=== PATIENT | female | born 1965 | race Hispanic/Latino ===

== ENCOUNTER 2017-04-15 00:42 | Inpatient (IN) | payer SELFPAY ==
[2017-04-15 01:59] LABS: #Lymphocytes 1.1 thou/uL (1.20-3.40); #Monocytes 0.9 thou/uL (0.11-0.59); #Neutrophils 7.2 thou/uL (1.40-6.50); %Eosinophils 0.4 % (0.0-10.0); %Lymphocytes 12.2 % (21.0-51.0); %Monocytes 9.6 % (0.0-10.0); %Neutrophils 77.8 % (42.0-75.0); Hemoglobin 11.1 g/dL (12.0-16.0); Mean Corpuscular Hemoglobin 30.3 pg (27.0-31.0); Mean Corpuscular Volume 91.8 fl (81.0-99.0); Mean Platelet Volume 6.8 fL (7.4-10.4); Platelet Count 290 thou/uL (130-400); RBC Distribution Width 12.4 % (11.5-14.5); Red Blood Cell (RBC) Count 3.65 mill/uL (4.20-5.40); White Blood Cell (WBC) Count 9.2 thou/uL (4.8-10.8)
[2017-04-15 02:03] LABS: Base Excess-Venous -8.1 mmol/L (-30.0-30.0); Bicarbonate (HCO3v) 19.5 mmol/L (1.0-85.0); CO2 Tension (PvCO2) 47.8 mmHg (41.0-51.0); Calcium, Ionized 1.09 mmol/L (1.12-1.32); Hemoglobin - Calc 10.7 g/dL (12.0-18.0); O2 Tension (PvO2) 38.8 mmHg (35.0-45.0); Potassium 3.5 mmol/L (3.4-4.7); T. Carbon Dioxide 20.9 mmol/L (1.0-85.0); pH (Venous) 7.218 (7.35-7.45); vO2 Saturation-calc 62.2 % (0.0-100.0)
[2017-04-15 02:06] LABS: INR-International Normal Ratio 1.2; PTT 26.1 SEC (22.9-36.1); Prothrombin Time 15.8 SEC (12.0-14.7)
[2017-04-15 02:21] LABS: ALT (SGPT) 68 U/L (8-55); AST (SGOT) 139 U/L (5-34); Albumin 3.2 g/dL (3.5-5.0); Alcohol 194 mg/dL (Less than 10); Alkaline Phosphatase 70 U/L (40-150); Anion Gap 17 mmol/L (10-20); BUN (Urea Nitrogen) 12 mg/dL (9.8-20.1); Bilirubin, Total 0.3 mg/dL (0.2-1.2); Calc. Creatinine Clearance 0 mL/min (70-130); Calcium 7.6 mg/dL (7.8-10.44); Carbon Dioxide 15 mmol/L (22-29); Chloride 116 mmol/L (98-107); Estimated GFR-MDRD Greater than 90; Globulin 2.2 g/dL (2.4-3.5); Glucose 138 mg/dL (70-105); Potassium 3.6 mmol/L (3.5-5.1); Protein, Total 5.4 g/dL (6.0-8.3); Sodium 144 mmol/L (136-145)
[2017-04-15] MEDS ORDERED: Dextrose 5% in Water 1,000 ML IV PRN (03:02)
[2017-04-15] MEDS ORDERED: Dextrose 50% Abboject 50 ML SYRINGE SLOW IVP PRN (03:02)
[2017-04-15] MEDS ORDERED: hydrALAZINE 20 MG/ML VIAL SLOW IVP PRN (03:02)
[2017-04-15] MEDS ORDERED: Promethazine HCl 25 MG/ML VIAL IM PRN (03:02)
[2017-04-15] MEDS ORDERED: Ondansetron ODT 4 MG TAB PO PRN (03:02)
[2017-04-15] MEDS ORDERED: Morphine 4 MG/ML Carpuject SLOW IVP PRN (03:02)
[2017-04-15] MEDS ORDERED: Thiamine HCl 200 MG/2 ML VIAL SLOW IVP SCH (03:02)
[2017-04-15] MEDS ORDERED: Acetaminophen 1,000 MG in Premix Bag 1 BAG IVPB PRN (03:02)
[2017-04-15] MEDS ORDERED: HumaLOG 300 UNITS/3 ML VIAL SC PRN (03:02)
[2017-04-15 03:07] VITALS: BMI 40.0
[2017-04-15] MEDS: Sodium Chloride 0.9% 1,000 ML IV SCH ×3 (03:38→20:29)
[2017-04-15] MEDS: Morphine 4 MG/ML Carpuject IVP PRN ×2 (03:42→08:26)
[2017-04-15] MEDS: Oxazepam 10 MG CAP PO SCH ×4 (05:05→20:29)
[2017-04-15 05:10] LABS: Bilirubin Negative (Negative); Blood, Urine Large (Negative); Clarity CLEAR (Clear); Glucose, Urine (Dipstick) Negative (Negative); Leukocyte Negative (Negative); Nitrite Negative (Negative); Protein, Urine (Dipstick) Trace mg/dL (Neg-Trace); Specific Gravity, Urine 1.022 (1.002-1.036); Urobilinogen 0.2 mg/dL (0.2-1.0)
[2017-04-15 05:13] LABS: Bacteria/HPF None Seen HPF (None Seen); Hyaline Casts/LPF 4-6 HYALINE CAST LPF (0-3 Hyaline); Pathc Cast-AUWi Flag 0.67 (0-2.49); Squamous Epithelial None Seen HPF (0-3); WBC/HPF 0-3 HPF (0-3)
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
[2017-04-15 05:41] LABS: #Lymphocytes 0.9 thou/uL (1.20-3.40); #Monocytes 0.4 thou/uL (0.11-0.59); #Neutrophils 6.9 thou/uL (1.40-6.50); %Basophils 0.2 % (0.0-1.0); %Eosinophils 0.2 % (0.0-10.0); %Lymphocytes 10.5 % (21.0-51.0); %Monocytes 5.2 % (0.0-10.0); %Neutrophils 83.9 % (42.0-75.0); Mean Corpuscular HGB CONC 33.3 g/dL (32.0-36.0); Mean Corpuscular Hemoglobin 30.3 pg (27.0-31.0); Platelet Count 309 thou/uL (130-400); RBC Distribution Width 12.6 % (11.5-14.5); Red Blood Cell (RBC) Count 3.63 mill/uL (4.20-5.40); White Blood Cell (WBC) Count 8.2 thou/uL (4.8-10.8)
[2017-04-15 05:46] LABS: Anion Gap 15 mmol/L (10-20); BUN (Urea Nitrogen) 11 mg/dL (9.8-20.1); Calc. Creatinine Clearance 147 mL/min (70-130); Calcium 7.7 mg/dL (7.8-10.44); Carbon Dioxide 18 mmol/L (22-29); Chloride 116 mmol/L (98-107); Estimated GFR-MDRD Greater than 90; Glucose 140 mg/dL (70-105); Potassium 3.6 mmol/L (3.5-5.1); Sodium 145 mmol/L (136-145)
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
[2017-04-15] MEDS: Famotidine/PF 20 mg/2ml Vial SLOW IVP SCH ×2 (08:28→20:29)
[2017-04-15] MEDS: Folic Acid 1 MG TAB PO SCH (08:29)
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
[2017-04-15] MEDS ORDERED: diphenhydrAMINE 50 MG/ML VIAL IM PRN (12:02)
[2017-04-15] MEDS ORDERED: diphenhydrAMINE 50 MG/ML VIAL IVP PRN (12:02)
[2017-04-15] MEDS ORDERED: diphenhydrAMINE 25 MG CAP PO PRN (12:02)
[2017-04-15] MEDS ORDERED: Naloxone HCl 0.4 mg/ml Vial IV PRN (12:02)
[2017-04-15] MEDS ORDERED: Communication Order-Pharmacy FS SCH (12:15)
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
[2017-04-15] MEDS: Acetaminophen 500 MG TAB PO SCH ×3 (12:31→23:01)
[2017-04-15] MEDS: HYDROmorphone 10 mg/100 ml CADD IVPB PRN (13:37)
[2017-04-15] MEDS ORDERED: Ketorolac Tromethamine 30 MG/ML VIAL IVP SCH (14:00)
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
[2017-04-15] MEDS: Ketorolac Tromethamine 30 MG/ML VIAL IVP SCH ×2 (18:04→23:00)
[2017-04-15] MEDS: Ondansetron HCl/PF 4 MG/2 ML Vial IVP PRN (20:29)
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
[2017-04-16 04:28] LABS: Band 5 % (5-11); Hemoglobin 8.9 g/dL (12.0-16.0); Lymphocytes 27 % (21-51); MDiff Complete? YES; Mean Corpuscular HGB CONC 34.4 g/dL (32.0-36.0); Mean Corpuscular Hemoglobin 31.5 pg (27.0-31.0); Mean Corpuscular Volume 91.6 fl (81.0-99.0); Mean Platelet Volume 6.8 fL (7.4-10.4); Metamyelocyte 2 % (0-0); Monocytes 2 % (0-10); Neutrophil 64 % (42-75); PLT Morphology Comment Appears Adequate; Platelet Count 220 thou/uL (130-400); RBC Distribution Width 12.5 % (11.5-14.5); Red Blood Cell (RBC) Count 2.82 mill/uL (4.20-5.40); White Blood Cell (WBC) Count 5.1 thou/uL (4.8-10.8)
[2017-04-16 04:33] LABS: Anion Gap 9 mmol/L (10-20); BUN (Urea Nitrogen) 14 mg/dL (9.8-20.1); Calc. Creatinine Clearance 152 mL/min (70-130); Calcium 8.1 mg/dL (7.8-10.44); Carbon Dioxide 24 mmol/L (22-29); Chloride 110 mmol/L (98-107); Estimated GFR-MDRD Greater than 90; Glucose 91 mg/dL (70-105); Phosphorus 2.6 mg/dL (2.3-4.7); Potassium 3.8 mmol/L (3.5-5.1); Sodium 139 mmol/L (136-145)
[2017-04-16] MEDS: Acetaminophen 500 MG TAB PO SCH ×4 (05:25→23:30)
[2017-04-16] MEDS: Ketorolac Tromethamine 30 MG/ML VIAL IVP SCH ×4 (05:25→23:30)
[2017-04-16] MEDS: Oxazepam 10 MG CAP PO SCH ×3 (05:26→21:06)
[2017-04-16] MEDS ORDERED: FLU VACC QS2017-18 36 mo. & older 0.5 ML SYRINGE IM ONE (09:00)
[2017-04-16] MEDS: Famotidine/PF 20 mg/2ml Vial SLOW IVP SCH ×2 (09:43→21:06)
[2017-04-16] MEDS: Folic Acid 1 MG TAB PO SCH (09:44)
[2017-04-16] MEDS: Sodium Chloride 0.9% 1,000 ML IV SCH (12:12)
[2017-04-16] MEDS: Ondansetron HCl/PF 4 MG/2 ML Vial IVP PRN (12:15)
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
[2017-04-16 16:01] LABS: Hemoglobin 8.8 g/dL (12.0-16.0)
[2017-04-16] MEDS: HYDROmorphone 10 mg/100 ml CADD IVPB PRN (17:27)
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
[2017-04-17 04:22] LABS: #Eosinphils 0.1 thou/uL (0.0-0.7); #Lymphocytes 1.3 thou/uL (1.20-3.40); #Monocytes 0.2 thou/uL (0.11-0.59); #Neutrophils 2.7 thou/uL (1.40-6.50); %Basophils 0.6 % (0.0-1.0); %Eosinophils 3.2 % (0.0-10.0); %Lymphocytes 30.5 % (21.0-51.0); %Monocytes 5.4 % (0.0-10.0); %Neutrophils 60.3 % (42.0-75.0); Hemoglobin 8.5 g/dL (12.0-16.0); Mean Corpuscular HGB CONC 32.9 g/dL (32.0-36.0); Mean Corpuscular Volume 91.1 fl (81.0-99.0); Mean Platelet Volume 6.7 fL (7.4-10.4); Platelet Count 221 thou/uL (130-400); RBC Distribution Width 12.1 % (11.5-14.5); Red Blood Cell (RBC) Count 2.83 mill/uL (4.20-5.40); White Blood Cell (WBC) Count 4.4 thou/uL (4.8-10.8)
[2017-04-17 04:33] LABS: Anion Gap 7 mmol/L (10-20); BUN (Urea Nitrogen) 11 mg/dL (9.8-20.1); Calc. Creatinine Clearance 152 mL/min (70-130); Calcium 8.4 mg/dL (7.8-10.44); Carbon Dioxide 27 mmol/L (22-29); Chloride 106 mmol/L (98-107); Estimated GFR-MDRD Greater than 90; Glucose 89 mg/dL (70-105); Magnesium 1.9 mg/dL (1.6-2.6); Phosphorus 3.1 mg/dL (2.3-4.7); Potassium 3.9 mmol/L (3.5-5.1); Sodium 136 mmol/L (136-145)
[2017-04-17] MEDS: Oxazepam 10 MG CAP PO SCH ×4 (06:04→21:03)
[2017-04-17] MEDS: Acetaminophen 500 MG TAB PO SCH ×3 (06:04→17:39)
[2017-04-17] MEDS: Ketorolac Tromethamine 30 MG/ML VIAL IVP SCH ×4 (06:04→23:38)
[2017-04-17] MEDS: Folic Acid 1 MG TAB PO SCH (08:34)
[2017-04-17] MEDS: Famotidine/PF 20 mg/2ml Vial SLOW IVP SCH ×2 (08:34→21:05)
[2017-04-17] MEDS ORDERED: Fentanyl 100 MCG/2 ML VIAL ONE ×2 (08:35→11:20)
[2017-04-17] MEDS ORDERED: Levofloxacin 500 mg/D5W 100 ml Premix Bag ONE (08:41)
[2017-04-17] MEDS ORDERED: Clindamycin/D5W 900 mg/50 ml Premix Bag ONE (08:42)
[2017-04-17] MEDS ORDERED: Phenylephrine 10 MG/NS 250 ML 250 ML ONE (09:20)
[2017-04-17] MEDS ORDERED: Clindamycin/D5W 900 MG in Premix Bag 1 BAG IVPB SCH (12:00)
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
--- NOTE | 2017-04-17 12:21 | RAD ---
THREE VIEWS OF THE PELVIS: HISTORY: ORIF of pelvic fractures. COMPARISON: None. FINDINGS/IMPRESSION: Multiple limited intraoperative fluoroscopic views of the pelvis were submitted for interpretation. There are two screws seen involving the sacroiliac joint. There is a plate and screws spanning the p ubic symphysis. No perihardware lucency is seen. POS: [facility]
[2017-04-17] MEDS ORDERED: Succinylcholine Chloride 20 MG/ML 10 ml SYRINGE FS ONE (12:42)
[2017-04-17] MEDS ORDERED: Glycopyrrolate 0.2 MG/ML 5 ML SYRINGE ONE (12:42)
[2017-04-17] MEDS ORDERED: Dexamethasone 20 MG/5 ML VIAL ONE (12:42)
[2017-04-17] MEDS ORDERED: PHENYLEPHRINE-NS 100 MCG/ML 10 ML SYRINGE ONE (12:42)
[2017-04-17] MEDS ORDERED: Propofol 200 MG/20 ML VIAL ONE (12:42)
[2017-04-17] MEDS ORDERED: Ondansetron HCl/PF 4 MG/2 ML Vial ONE (12:42)
[2017-04-17] MEDS ORDERED: Metoclopramide HCl 10 MG/2 ML VIAL ONE (12:42)
[2017-04-17] MEDS ORDERED: Lidocaine 1% PF 5 ML VIAL ONE (12:42)
--- NOTE | 2017-04-17 12:50 | RAD ---
PELVIS 1 VIEW: HISTORY: Evaluate fractures. COMPARISON: Radiographs same day. FINDINGS: Single radiograph of the pelvis demonstrates 2 partially threaded cannulated screws. The craniad scr ew through S1 extends to right SI joint and the left traverses both SI joints. The malleable plate a nd screw fixation to the pubic symphysis is in good position. Surgical tiffanie are present over the mid abdomen. Sarkar catheter is present. IMPRESSION: Satisfactory position post fixation. POS: [facility]
[2017-04-17] MEDS: Clindamycin/D5W 900 MG in Premix Bag 1 BAG IVPB SCH ×2 (13:12→21:04)
[2017-04-17] MEDS: HYDROcodone/Acetaminophen 10/325 mg Tablet PO PRN ×3 (13:14→21:03)
[2017-04-17] MEDS: Sodium Chloride 0.9% 1,000 ML IV SCH (13:14)
--- NOTE | 2017-04-17 14:00 | CT ---
PELVIC CT WITHOUT CONTRAST: HISTORY: Status post pelvic instrumentation. COMPARISON: None. TECHNIQUE: A noncontrast pelvic CT is performed in the axial plane. Reformatted images are submitted for interp retation. FINDINGS: Visualized alimentary canal and mesentery are unremarkable. Uterus and adnexal structures are unrema rkable. The urinary bladder is decompressed with Sarkar catheterization. Ventral subcutaneous emphysema and fat stranding due to surgery is identified. There are multiple ve ntral surgical tiffanie. There is a plate with screws traversing the symphysis pubis as well as the m edial aspect of both superior pubic rami. There is a fracture involving the right inferior pubic zuleika us with associated mild displacement and distraction. There is a screw that traverses the right SI joint. There is a second longer screw that traverses bot h SI joints. Both screws are via the right iliac approach. There is a minimally displaced fracture i nvolving the right aspect of S1 and S2. Also, nondisplaced fracture of the right iliac wing along th e SI joint is noted. There are degenerative changes of the left IS joint without evidence of fractur e. Fractures of the left and right spinous process at L5 are noted. IMPRESSION: Internal fixation hardware and fractures as above. POS: [facility]
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
[2017-04-18] MEDS: Acetaminophen 500 MG TAB PO SCH ×3 (00:42→12:29)
[2017-04-18] MEDS: HYDROcodone/Acetaminophen 10/325 mg Tablet PO PRN ×4 (00:46→20:36)
[2017-04-18] MEDS: Oxazepam 10 MG CAP PO SCH ×3 (04:50→20:38)
[2017-04-18 04:51] LABS: Anion Gap 9 mmol/L (10-20); BUN (Urea Nitrogen) 10 mg/dL (9.8-20.1); Calc. Creatinine Clearance 147 mL/min (70-130); Calcium 8.1 mg/dL (7.8-10.44); Carbon Dioxide 27 mmol/L (22-29); Chloride 104 mmol/L (98-107); Estimated GFR-MDRD Greater than 90; Glucose 119 mg/dL (70-105); Magnesium 1.9 mg/dL (1.6-2.6); Phosphorus 3.1 mg/dL (2.3-4.7); Potassium 4.1 mmol/L (3.5-5.1); Sodium 136 mmol/L (136-145)
[2017-04-18 05:01] LABS: Band 11 % (5-11); Eosinophils 1 % (0-10); Hemoglobin 7.5 g/dL (12.0-16.0); Lymphocytes 11 % (21-51); MDiff Complete? YES; Mean Corpuscular HGB CONC 33.5 g/dL (32.0-36.0); Mean Corpuscular Hemoglobin 30.5 pg (27.0-31.0); Monocytes 1 % (0-10); Neutrophil 76 % (42-75); PLT Morphology Comment Appears Adequate; Platelet Count 230 thou/uL (130-400); RBC Distribution Width 12.2 % (11.5-14.5); Red Blood Cell (RBC) Count 2.46 mill/uL (4.20-5.40); White Blood Cell (WBC) Count 6.2 thou/uL (4.8-10.8)
[2017-04-18] MEDS: Ketorolac Tromethamine 30 MG/ML VIAL IVP SCH ×2 (06:14→12:37)
[2017-04-18] MEDS: Famotidine/PF 20 mg/2ml Vial SLOW IVP SCH ×2 (09:14→20:38)
[2017-04-18] MEDS: Folic Acid 1 MG TAB PO SCH (09:14)
[2017-04-18] MEDS: Enoxaparin Sodium 40 MG/0.4 ML SYRINGE SC SCH (09:15)
[2017-04-18] MEDS: Sodium Chloride 0.9% 1,000 ML IV SCH (12:29)
[2017-04-18] MEDS: Ibuprofen 600 MG TAB PO SCH ×3 (14:15→20:52)
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
[2017-04-18] MEDS ORDERED: Ibuprofen 600 MG TAB PO SCH (18:00)
[2017-04-18] MEDS: Senokot S 8.6-50 MG TAB PO SCH (20:38)
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
[2017-04-19] MEDS: Ibuprofen 600 MG TAB PO SCH ×4 (02:34→20:40)
[2017-04-19] MEDS: HYDROcodone/Acetaminophen 10/325 mg Tablet PO PRN ×3 (02:34→16:55)
[2017-04-19] MEDS: Oxazepam 10 MG CAP PO SCH ×3 (05:01→20:41)
[2017-04-19 07:38] LABS: #Eosinphils 0.2 thou/uL (0.0-0.7); #Lymphocytes 1.5 thou/uL (1.20-3.40); #Monocytes 0.4 thou/uL (0.11-0.59); #Neutrophils 2.8 thou/uL (1.40-6.50); %Basophils 0.8 % (0.0-1.0); %Eosinophils 4.6 % (0.0-10.0); %Lymphocytes 30.1 % (21.0-51.0); %Monocytes 8.3 % (0.0-10.0); %Neutrophils 56.3 % (42.0-75.0); Hemoglobin 7.2 g/dL (12.0-16.0); Mean Corpuscular HGB CONC 32.7 g/dL (32.0-36.0); Mean Corpuscular Hemoglobin 29.9 pg (27.0-31.0); Mean Corpuscular Volume 91.4 fl (81.0-99.0); Mean Platelet Volume 6.3 fL (7.4-10.4); Platelet Count 245 thou/uL (130-400); RBC Distribution Width 12.3 % (11.5-14.5); White Blood Cell (WBC) Count 4.9 thou/uL (4.8-10.8)
[2017-04-19] MEDS: Senokot S 8.6-50 MG TAB PO SCH ×2 (08:30→20:40)
[2017-04-19] MEDS: Folic Acid 1 MG TAB PO SCH (08:30)
[2017-04-19] MEDS: Famotidine/PF 20 mg/2ml Vial SLOW IVP SCH ×2 (08:31→20:41)
[2017-04-19] MEDS: Polyethylene Glycol 3350 17 GM Packet PO SCH (08:31)
[2017-04-19] MEDS: Enoxaparin Sodium 40 MG/0.4 ML SYRINGE SC SCH (08:31)
[2017-04-19] MEDS: Ascorbic Acid 500 mg Chewable Tablet PO SCH ×2 (08:35→16:55)
[2017-04-19] MEDS: Lisinopril 10 MG TAB PO SCH (08:35)
[2017-04-19] MEDS: Ferrous Sulfate 325 MG TAB PO SCH ×2 (08:35→16:55)
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
[2017-04-20] MEDS: Ibuprofen 600 MG TAB PO SCH ×4 (01:04→20:42)
[2017-04-20] MEDS: Oxazepam 10 MG CAP PO SCH ×3 (04:16→20:42)
[2017-04-20] MEDS: HYDROcodone/Acetaminophen 10/325 mg Tablet PO PRN ×3 (04:16→17:15)
[2017-04-20 07:30] LABS: #Basophils 0.1 thou/uL (0.0-0.2); #Eosinphils 0.3 thou/uL (0.0-0.7); #Lymphocytes 1.3 thou/uL (1.20-3.40); #Monocytes 0.4 thou/uL (0.11-0.59); #Neutrophils 3.6 thou/uL (1.40-6.50); %Basophils 1.1 % (0.0-1.0); %Eosinophils 5.1 % (0.0-10.0); %Lymphocytes 22.7 % (21.0-51.0); %Monocytes 6.9 % (0.0-10.0); %Neutrophils 64.3 % (42.0-75.0); Hemoglobin 7.6 g/dL (12.0-16.0); Mean Corpuscular HGB CONC 32.8 g/dL (32.0-36.0); Mean Corpuscular Hemoglobin 30.1 pg (27.0-31.0); Mean Corpuscular Volume 91.7 fl (81.0-99.0); Mean Platelet Volume 6.2 fL (7.4-10.4); Platelet Count 296 thou/uL (130-400); RBC Distribution Width 12.9 % (11.5-14.5); Red Blood Cell (RBC) Count 2.53 mill/uL (4.20-5.40); White Blood Cell (WBC) Count 5.7 thou/uL (4.8-10.8)
[2017-04-20] MEDS: Senokot S 8.6-50 MG TAB PO SCH ×2 (09:29→20:43)
[2017-04-20] MEDS: Ascorbic Acid 500 mg Chewable Tablet PO SCH ×2 (09:29→17:14)
[2017-04-20] MEDS: Ferrous Sulfate 325 MG TAB PO SCH ×2 (09:29→17:15)
[2017-04-20] MEDS: Polyethylene Glycol 3350 17 GM Packet PO SCH (09:29)
[2017-04-20] MEDS: Famotidine/PF 20 mg/2ml Vial SLOW IVP SCH ×2 (09:29→20:42)
[2017-04-20] MEDS: Lisinopril 10 MG TAB PO SCH (09:29)
[2017-04-20] MEDS: Folic Acid 1 MG TAB PO SCH (09:29)
[2017-04-20] MEDS: Enoxaparin Sodium 40 MG/0.4 ML SYRINGE SC SCH (09:29)
[2017-04-20] MEDS ORDERED: Magnesium Citrate 300 ML BOT PO SCH (13:15)
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
[2017-04-21] MEDS: HYDROcodone/Acetaminophen 10/325 mg Tablet PO PRN ×3 (00:22→12:59)
[2017-04-21] MEDS: Oxazepam 10 MG CAP PO SCH ×2 (03:08→12:59)
[2017-04-21] MEDS: Ibuprofen 600 MG TAB PO SCH ×2 (03:08→08:53)
[2017-04-21] MEDS ORDERED: Bisacodyl 10 MG SUPP PR SCH (08:30)
[2017-04-21] MEDS: Ferrous Sulfate 325 MG TAB PO SCH (08:53)
[2017-04-21] MEDS: Lisinopril 10 MG TAB PO SCH (08:53)
[2017-04-21] MEDS: Enoxaparin Sodium 40 MG/0.4 ML SYRINGE SC SCH (08:54)
[2017-04-21] MEDS: Ascorbic Acid 500 mg Chewable Tablet PO SCH (08:54)
[2017-04-21] MEDS: Polyethylene Glycol 3350 17 GM Packet PO SCH (08:54)
[2017-04-21] MEDS: Famotidine/PF 20 mg/2ml Vial SLOW IVP SCH (08:54)
[2017-04-21] MEDS: Folic Acid 1 MG TAB PO SCH (08:54)
[2017-04-21] MEDS: Senokot S 8.6-50 MG TAB PO SCH (08:54)
[2017-04-21 15:36] VITALS: BP 124/76; TEMP 97.8
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
== END 2017-04-21 15:32 | disposition home or self-care (01) | DRG 515 ==
LOC: ERS 00:42 → CCU 02:46 → SURG A 14:08
PROVIDERS: ADMIT Surgery; ATTEND Surgery
PROC: 0QS204Z Reposition Right Pelvic Bone with Internal Fixation Device, Open Approach (ICD-10-PCS; principal; 2017-04-17)
PROC: 0SS734Z Reposition Right Sacroiliac Joint with Internal Fixation Device, Percutaneous Approach (ICD-10-PCS; 2017-04-17)
DX: S33.4XXA Traumatic rupture of symphysis pubis, initial encounter (principal); S06.6X9A Traumatic subarachnoid hemorrhage with loss of consciousness of unspecified duration, initial encounter; S22.49XA Multiple fractures of ribs, unspecified side, initial encounter for closed fracture; S32.059A Unspecified fracture of fifth lumbar vertebra, initial encounter for closed fracture; I10 Essential (primary) hypertension; V49.9XXA Car occupant (driver) (passenger) injured in unspecified traffic accident, initial encounter; Y92.410 Unspecified street and highway as the place of occurrence of the external cause; F32.9 Major depressive disorder, single episode, unspecified; F17.210 Nicotine dependence, cigarettes, uncomplicated; F10.129 Alcohol abuse with intoxication, unspecified; Y90.8 Blood alcohol level of 240 mg/100 ml or more; S33.2XXA Dislocation of sacroiliac and sacrococcygeal joint, initial encounter; G89.11 Acute pain due to trauma
CPT/HCPCS: 36415; 36416; 51702; 70450; 71045; 72170; 72190; 72192; 76001; 80048; 80053; 80307; 81001; 82330; 82803; 83605; 83735; 84100; 85007; 85025; 85027; 85610; 85730; 86850; 86900; 86901; 90471; 90682; 94640; 99406; C1713; C1769; G0008; G0390; G8978-GP-CM; G8979-GP-CK; G8987-GO-CL; G8988-GO-CK; J0131; J1100; J1170; J1650; J1885; J1956; J2001; J2270; J2405; J2704; J2765; J3010; J3411; J3490; J7050; J7620; Q2036; S0028